=== PATIENT | female | born 2000 | race African-American/Black ===

== ENCOUNTER 2021-06-07 22:03 | Emergency (ER) | payer OTHER ==
[~2021-06-07] VITALS: Ht 165.1 cm; Wt 72.7 kg
[2021-06-07] MEDS ORDERED: IBUPROFEN 600 MG TABLET PO ONE (22:30)
[2021-06-07] MEDS ORDERED: BACLOFEN 10 MG TABLET PO ONE (22:30)
[2021-06-07] MEDS ORDERED: ACETAMINOPHEN 500 MG TABLET PO ONE (22:30)
[2021-06-08 01:38] VITALS: BP 127/67
== END 2021-06-08 01:48 | disposition home or self-care (01) ==
LOC: EMS 22:10
DX: S13.4XXA Sprain of ligaments of cervical spine, initial encounter (principal); S39.012A Strain of muscle, fascia and tendon of lower back, initial encounter; V43.52XA Car driver injured in collision with other type car in traffic accident, initial encounter; Y93.89 Activity, other specified; Y92.89 Other specified places as the place of occurrence of the external cause; Y99.8 Other external cause status
CPT/HCPCS: 72040; 72070; 72100; 99284; Z7502; Z7610